=== PATIENT | male | born 1950 | race Caucasian/White ===

== ENCOUNTER → 2016-11-29 | Outpatient (CLI) | payer MEDICARE, BC ==
[2016-11-29 11:36] LABS: ALT 32 U/L (21-72); AST 23 U/L (17-59); Cholesterol 141 mg/dL (<200); HDL Cholesterol 42 mg/dL (40-60); Triglycerides 89 mg/dL (<150)
== END | disposition home or self-care (01) ==
LOC: LABWHC1 10:34
PROVIDERS: ATTEND Internal Medicine Interventional Cardiology
DX: E78.2 Mixed hyperlipidemia (principal)
CPT/HCPCS: 36415; 80061; 84450; 84460

== ENCOUNTER → 2017-06-16 | Outpatient (CLI) | payer MEDICARE, BC ==
[2017-06-16 09:14] LABS: ALT 28 U/L (21-72); AST 24 U/L (17-59); Alkaline Phosphatase 57 U/L (38-126); Anion Gap 9 mmol/L; Blood Urea Nitrogen 23 mg/dL (9-20); Calcium 9.2 mg/dL (8.4-10.2); Carbon Dioxide 28 mmol/L (22-30); Chloride 105 mmol/L (98-107); Cholesterol 130 mg/dL (<200); Glucose 95 mg/dL (74-99); HDL Cholesterol 46 mg/dL (40-60); Non-African American GFR(MDRD) >60 (>60 ml/min/1.73 sqM); Potassium 4.1 mmol/L (3.5-5.1); Sodium 142 mmol/L (137-145); Total Bilirubin 1.2 mg/dL (0.2-1.3); Total Protein 6.9 g/dL (6.3-8.2)
== END | disposition home or self-care (01) ==
LOC: LABWHC1 08:37
PROVIDERS: ATTEND Internal Medicine Interventional Cardiology
DX: E78.2 Mixed hyperlipidemia (principal)
CPT/HCPCS: 36415; 80053; 80061

== ENCOUNTER → 2017-12-14 | Outpatient (CLI) | payer MEDICARE, BC ==
[2017-12-14 11:01] LABS: ALT 24 U/L (21-72); AST 23 U/L (17-59); Albumin 4.3 g/dL (3.5-5.0); Alkaline Phosphatase 55 U/L (38-126); Anion Gap 10 mmol/L; Blood Urea Nitrogen 19 mg/dL (9-20); Calcium 9.9 mg/dL (8.4-10.2); Carbon Dioxide 33 mmol/L (22-30); Chloride 100 mmol/L (98-107); Cholesterol 129 mg/dL (<200); Glucose 105 mg/dL (74-99); HDL Cholesterol 45 mg/dL (40-60); LDL Cholesterol,Calculated 69 mg/dL (0-99); Potassium 4.4 mmol/L (3.5-5.1); Sodium 143 mmol/L (137-145); Total Bilirubin 1.2 mg/dL (0.2-1.3); Total Protein 7.1 g/dL (6.3-8.2); Triglycerides 74 mg/dL (<150)
== END | disposition home or self-care (01) ==
LOC: LABWHC1 10:07
PROVIDERS: ATTEND Internal Medicine Interventional Cardiology
DX: E78.2 Mixed hyperlipidemia (principal)
CPT/HCPCS: 36415; 80053; 80061

== ENCOUNTER → 2018-07-16 | Outpatient (CLI) | payer MEDICARE, BC ==
[2018-07-16 10:47] LABS: ALT 20 U/L (21-72); AST 20 U/L (17-59); Cholesterol 117 mg/dL (<200); HDL Cholesterol 43 mg/dL (40-60); LDL Cholesterol,Calculated 62 mg/dL (0-99); Triglycerides 59 mg/dL (<150)
== END | disposition home or self-care (01) ==
LOC: LABWHC1 09:36
PROVIDERS: ATTEND Internal Medicine Interventional Cardiology
DX: E78.2 Mixed hyperlipidemia (principal)
CPT/HCPCS: 36415; 80061; 84450; 84460

== ENCOUNTER → 2018-12-05 | Outpatient (CLI) | payer MEDICARE, BC ==
--- NOTE | 2018-12-05 12:04 | XR ---
Left shoulder HISTORY: Left shoulder pain, limited range of motion 3 views of the left shoulder, no comparisons Bone mineralization and alignment maintained. Question some loss of joint space at the glenohumeral j oint. Left lung apex as visualized is normal. No fracture or dislocation. The aorta is dense. IMPRESSION: Possible joint space loss glenohumeral joint, shoulder MRI may be of benefit.
== END | disposition home or self-care (01) ==
LOC: RADXRYALE 10:23
PROVIDERS: ATTEND Internal Medicine
DX: M25.512 Pain in left shoulder (principal)

== ENCOUNTER → 2019-01-01 | Outpatient (CLI) | payer MEDICARE, BC ==
[2019-01-01 16:02] LABS: Albumin 4.2 g/dL (3.80-4.90); Calcium 9.3 mg/dL (8.7-10.3); Globulin 2.1 g/dL (1.6-3.3); LDL Cholesterol,Calculated 62.8 mg/dL (0.0-131.0); Total Bilirubin 0.9 mg/dL (0.2-1.2); Total Protein 6.3 g/dL (6.2-8.2); VLDL Calculation 10.2 mg/dL (5.00-40.00)
== END | disposition home or self-care (01) ==
LOC: LABWHC1 10:45
PROVIDERS: ATTEND Internal Medicine Interventional Cardiology
DX: E78.2 Mixed hyperlipidemia (principal)
CPT/HCPCS: 36415; 80053; 80061

== ENCOUNTER → 2019-05-16 | Outpatient (CLI) | payer MEDICARE, BC ==
--- NOTE | 2019-05-16 08:15 | US ---
EXAMINATION TYPE: US groin RT DATE OF EXAM: 05/16/2019 COMPARISON: NONE CLINICAL HISTORY: R31.0 Gross hematuria, K40.91 Inguinal hernia. Patient states having right hernia s urgery x 5 years ago. Patient states bumping right groin with a trailer. Right groin scanned. Break in muscle visualized with protruding bowel seen during valsalva maneuvers . Approximate width = 0.6 cm. Area of shadowing visualized in right groin, possible previous mesh from prior hernia surgery? IMPRESSION: There is suspected recurrent small inguinal hernia best visualized during Valsalva maneu fatuma as detailed above.
--- NOTE | 2019-05-16 08:18 | US ---
EXAMINATION TYPE: US kidneys/renal and bladder DATE OF EXAM: 05/16/2019 COMPARISON: NONE CLINICAL HISTORY: R31.0 Gross hematuria, K40.91 Inguinal hernia. Gross hematuria. Patient states bum ping right groin with a trailer. EXAM MEASUREMENTS: Right Kidney: 11.2 x 5.5 x 6.6 cm Left Kidney: 10.4 x 4.0 x 5.3 cm Right Kidney: two simple appearing thin-walled cysts visualized. 1- mid medial = 5.7 x 6.1 x 5.8 cm. 2- lower medial = 3.3 x 2.9 x 2.4 cm. Left Kidney: Probable thin-walled cyst, lower pole = 0.6 x 0.6 x 0.7 cm towards end of study. Bladder: Suboptimally distended otherwise, wnl Bilateral Jets seen There is no evidence for hydronephrosis at this point in time. No nephrolithiasis is seen on images saved. No masses are identified. The urinary bladder is not greatly distended without intraluminal mass. Bilateral ureteral jets are seen. IMPRESSION: No significant finding is seen to account for patient's symptoms of hematuria. Some large r simple-appearing thin-walled cysts noted in the right kidney. If symptoms persist further investiga tion with CT would be warranted.
== END | disposition home or self-care (01) ==
LOC: RADUSWWP 07:24
PROVIDERS: ATTEND Internal Medicine
DX: N28.1 Cyst of kidney, acquired (principal); K40.91 Unilateral inguinal hernia, without obstruction or gangrene, recurrent
CPT/HCPCS: 76770

== ENCOUNTER → 2019-05-29 | Outpatient (CLI) | payer MEDICARE, BC ==
--- NOTE | 2019-05-29 14:17 | CT ---
EXAMINATION TYPE: CT abdomen pelvis wo con DATE OF EXAM: 05/29/2019 COMPARISON: Correlation renal ultrasound 05/16/2019 HISTORY: 58-year-old male with gross Hematuria CT DLP: 382.6 mGycm. Automated exposure control for dose reduction was used. TECHNIQUE: Contiguous axial scanning of the abdomen and pelvis without IV contrast. Coronal and sagit bridget reconstructions performed. FINDINGS: Heart upper limits of normal in size without pericardial effusion. Coronary vessel calcifications are present and are a marker for coronary artery disease. Lung bases clear without pleural effusion. There is a moderate-sized hiatal hernia containing a third of the stomach in the lower chest. Promine nt soft tissue density in the region of the hernia suspected to represent gastric sharp in apposition . Noncontrast appearance of the liver, gallbladder, adrenal glands, left kidney, spleen, and pancreas s how no gross abnormality. Large 6.5 cm hypodense lesion lateral right kidney and a biloculated appearing low-density lesion low er pole right kidney measuring 4.3 cm. No nephrolithiasis or hydronephrosis is seen. No dilated small bowel, free fluid, or free air. Moderate stool burden. Mild diverticular change along the right side of the colon and mild within the sigmoid colon as well. No pericolonic inflammatory change. No mesenteric or retroperitoneal lymphadenopathy. Mild to moderate atherosclerotic calcifications abdominal aorta and iliac arteries with infrarenal fu siform ectasia 2.5 cm. Bladder urine distended. Prostate gland measures 4.0 cm wide. Pelvic limits. Prominent 9 mm right ext ernal iliac chain lymph node. No abnormal fluid collection in the pelvis. Bones: Mild degenerative changes at the hips. Hypertrophic facet arthropathy lower lumbar spine. Grad e 1 retrolisthesis at L2-L3. IMPRESSION: 1. No nephrolithiasis or hydronephrosis. 2. A couple cystic lesions within the right kidney measure up to 6.5 cm. Benign cysts are suspected. The smaller is at the lower pole and appears bilocular measuring 4.3 cm. 3. Moderate stool burden. Mild diverticular change. No acute diverticulitis. 4. Moderate-sized hiatal hernia. Prominent soft tissue density at the site of hernia likely represen ts redundant and clumped up gastric wall. Direct visualization as clinically indicated.
== END | disposition home or self-care (01) ==
LOC: RADCTMAIN 10:55
PROVIDERS: ATTEND Internal Medicine
DX: N28.1 Cyst of kidney, acquired (principal); K44.9 Diaphragmatic hernia without obstruction or gangrene
CPT/HCPCS: 74176

== ENCOUNTER → 2019-08-01 | Outpatient (CLI) | payer MEDICARE, BC ==
[2019-08-01 23:35] LABS: Chol/HDL Ratio 3.32; LDL Cholesterol,Calculated 74.2 mg/dL (0.0-131.0); VLDL Calculation 13.8 mg/dL (5.00-40.00)
== END | disposition home or self-care (01) ==
LOC: LABWHC1 09:53
PROVIDERS: ATTEND Internal Medicine Interventional Cardiology
DX: E78.2 Mixed hyperlipidemia (principal)
CPT/HCPCS: 36415; 80061; 84450; 84460

== ENCOUNTER → 2020-02-05 | Outpatient (CLI) | payer MEDICARE, BC ==
[2020-02-05 15:24] LABS: African American GFR (CKD) 99.9 (60.0-200.0); Albumin 4.3 g/dL (3.80-4.90); Albumin/Globulin Ratio 2.05 (1.60-3.17); Anion Gap 8.6 mmol/L (4.00-12.00); Calcium 9.3 mg/dL (8.7-10.3); Carbon Dioxide 29.4 mmol/L (21.6-31.8); Chol/HDL Ratio 3.15; Globulin 2.1 g/dL (1.6-3.3); LDL Cholesterol,Calculated 71.8 mg/dL (0.0-131.0); Non-African American GFR(CKD) 86.2 (60.0-200.0); Potassium 3.9 mmol/L (3.5-5.5); Total Bilirubin 1.1 mg/dL (0.3-1.2); Total Protein 6.4 g/dL (6.2-8.2); VLDL Calculation 14.2 mg/dL (5.00-40.00)
== END | disposition home or self-care (01) ==
LOC: LABWHC1 10:38
PROVIDERS: ATTEND Internal Medicine Interventional Cardiology
DX: E78.2 Mixed hyperlipidemia (principal)
CPT/HCPCS: 36415; 80053; 80061

== ENCOUNTER → 2021-02-22 | Outpatient (CLI) | payer MEDICARE ==
[2021-02-22 14:54] LABS: African American GFR (CKD) 87.4 (60.0-200.0); Albumin 4.5 g/dL (3.80-4.90); Albumin/Globulin Ratio 2.37 (1.60-3.17); Anion Gap 5.6 mmol/L (4.00-12.00); Calcium 9.6 mg/dL (8.7-10.3); Carbon Dioxide 31.4 mmol/L (21.6-31.8); Chol/HDL Ratio 3.5; Globulin 1.9 g/dL (1.6-3.3); LDL Cholesterol,Calculated 84.2 mg/dL (0.0-131.0); Non-African American GFR(CKD) 75.4 (60.0-200.0); Potassium 4.2 mmol/L (3.5-5.5); Total Bilirubin 1.4 mg/dL (0.2-1.2); Total Protein 6.4 g/dL (6.2-8.2); VLDL Calculation 15.8 mg/dL (5.00-40.00)
== END | disposition home or self-care (01) ==
LOC: LABWHC1 09:31
PROVIDERS: ATTEND Internal Medicine Interventional Cardiology
DX: E78.2 Mixed hyperlipidemia (principal)
CPT/HCPCS: 36415; 80053; 80061

== ENCOUNTER → 2021-09-14 | Outpatient (CLI) | payer MEDICARE ==
[2021-09-14 18:15] LABS: LDL Cholesterol,Calculated 66.4 mg/dL (0.0-131.0); VLDL Calculation 13.94 mg/dL (5.00-40.00)
[2021-09-14 18:58] LABS: ALT 13 U/L (10-49); AST 28 U/L (14-35)
== END | disposition home or self-care (01) ==
LOC: LABWHC1 10:04
PROVIDERS: ATTEND Internal Medicine Interventional Cardiology
DX: E78.2 Mixed hyperlipidemia (principal)
CPT/HCPCS: 36415; 80061; 84450; 84460

== ENCOUNTER → 2021-12-01 | Outpatient (CLI) | payer MEDICARE ==
[2021-12-01 20:27] LABS: African American GFR (CKD) 88.3 (60.0-200.0); Blood Urea Nitrogen 15.4 mg/dL (9.0-27.0); Non-African American GFR(CKD) 76.2 (60.0-200.0)
[2021-12-01 20:48] LABS: C Reactive Protein <0.30 mg/dL (0.00-0.80)
== END | disposition home or self-care (01) ==
LOC: LABWHC1 12:17
PROVIDERS: ATTEND Ophthalmology
DX: E03.9 Hypothyroidism, unspecified (principal)
CPT/HCPCS: 36415; 82565; 84439; 84443; 84520; 86140

== ENCOUNTER → 2021-12-16 | Outpatient (CLI) | payer MEDICARE ==
--- NOTE | 2021-12-18 02:46 | MR ---
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 The orbital margins are intact. There is no evidence of retro-orbital mass. The extraocular muscles a ppear symmetric and normal in size. The globes are symmetric. The optic nerves have normal size and c ontour. The contrast images show no pathologic enhancement. There is minimal mucosal thickening in the anterior ethmoid air cells. IMPRESSION: Normal MR scan of the orbits. Minimal anterior ethmoid sinusitis.
== END | disposition home or self-care (01) ==
LOC: RADMRIMAIN 11:16
PROVIDERS: ATTEND Ophthalmology
DX: H05.20 Unspecified exophthalmos (principal)
CPT/HCPCS: 70543; A9585

== ENCOUNTER → 2022-03-31 | Outpatient (CLI) | payer MEDICARE ==
[2022-03-31 14:34] LABS: ALT 6 U/L (10-49); AST 22 U/L (14-35); African American GFR (CKD) 104.5 (60.0-200.0); Albumin 4.4 g/dL (3.8-4.9); Albumin/Globulin Ratio 1.78 (1.60-3.17); Alkaline Phosphatase 77 U/L (41-126); BUN/Creat Ratio 26.03 Ratio (12.00-20.00); Blood Urea Nitrogen 20.3 mg/dL (9.0-27.0); Calcium 9.4 mg/dL (8.7-10.3); Carbon Dioxide 24.2 mmol/L (20.0-27.5); Chloride 104 mmol/L (96-109); Chol/HDL Ratio 3.03 Ratio; Globulin 2.5 g/dL (1.6-3.3); Glucose 107 mg/dL (70-110); LDL Cholesterol,Calculated 69.9 mg/dL (0.0-131.0); Non-African American GFR(CKD) 90.2 (60.0-200.0); Potassium 3.7 mmol/L (3.5-5.5); Sodium 138 mmol/L (135-145); Total Protein 6.8 g/dL (6.2-8.2)
== END | disposition home or self-care (01) ==
LOC: LABWHC1 09:11
PROVIDERS: ATTEND Internal Medicine Interventional Cardiology
DX: E78.2 Mixed hyperlipidemia (principal)
CPT/HCPCS: 36415; 80053; 80061

== ENCOUNTER 2025-05-15 08:53 | Day surgery (SDC) | payer MEDICARE ==
[2025-05-15] MEDS: IV FLUID CONTINUATION 1,000 ML IV ONE ×2 (09:10→10:27)
[2025-05-15 09:25] VITALS: RESP 16; TEMP 98.2
[2025-05-15] MEDS: LACTATED RINGERS 1,000 ML IV SCH (09:33)
[2025-05-15] MEDS ORDERED: PROPOFOL 10 MG/ML 20 ML VIAL IV ONE (10:30)
[2025-05-15] MEDS ORDERED: LIDOCAINE 2% (PF) 20 MG/ML 5 ML VIAL ONE (10:30)
[2025-05-15 11:06] VITALS: PULSE 57
[2025-05-15] MEDS: LACTATED RINGERS 1,000 ML IV ONE (11:06)
[2025-05-15 11:15] VITALS: BP 101/62
--- NOTE | 2025-05-15 11:16 | P.PCN ---
Date of Procedure: 05/15/25 Preoperative Diagnosis: GERD Screening Postoperative Diagnosis: Hiatal hernia Diverticulosis Ascending colon polyp Procedure(s) Performed: EGD with biopsy Colonoscopy with forcep polypectomy Anesthesia: [facility] [place] Pathology: other (Biopsy of antrum, GE junction, duodenum and polypectomy of ascending colon) Condition: stable Disposition: same day Indications for Procedure: 74-year-old male presents today for upper and lower endoscopy. He does have chronic history of GERD and hiatal hernia. He states he has some pain in the epigastrium and further evaluation will be performed with EGD. He is due for screening colonoscopy. Denies any blood in the stool. Does have history of polyp in the past. Risks, benefits and alternatives provided to the patient. All questions answered. Operative Findings: Hiatal hernia, moderate size Ascending colon polyp Diverticulosis of the sigmoid colon Description of Procedure: The patient was brought into the endoscopy suite and placed in left lateral decubitus position. Adequate sedation was achieved using conscious sedation. A bite-block was placed and an endoscope was placed in the oropharynx and advanced under endoscopic visualization. The endoscope was advanced through the esophagus into the stomach, through the gastric antrum and in through the pylorus. The third portion of duodenum was visualized. The endoscope was then slowly withdrawn. The first portion of duodenum was noted to have mild inflammatory changes. Biopsies were taken. The antrum was noted to have mild inflammatory changes. Biopsies were taken. The gastric body distended normally and the gastric folds appeared normal and flattened with insufflation. A retroflexed view of the fundus and GE junction revealed moderate size hiatal hernia. GE junction appeared normal without any significant inflammatory changes and biopsies were taken. The esophagus appeared endoscopically normal. Excess air was removed and the scope was withdrawn. Digital rectal exam was performed and mild internal hemorrhoids were palpated. An endoscope was then placed in the rectum and advanced to the cecum as identified by landmarks including the appendiceal orifice and the ileocecal valve. The prep was fair. The colonoscope was then slowly withdrawn, examining for any mucosal abnormalities. The cecum, ascending, transverse, descending and sigmoid colon were visualized adequately. There were no large neoplastic lesions noted throughout the colon. Small polyp was noted in the ascending colon. Forcep polypectomy was performed. Hemostasis was maintained. Diverticulosis was noted in the sigmoid colon. Hemostasis was maintained. Retroflexion was performed in the rectum and internal hemorrhoids. Excess air was removed, the colonoscope withdrawn and the procedure terminated. The patient was then transferred to the recovery unit in stable condition. Repeat colonoscopy should be performed in 5 years.
== END 2025-05-15 12:04 | disposition home or self-care (01) ==
LOC: ORWHC2ENDO 08:53
PROVIDERS: ATTEND Surgery
DX: Z12.11 Encounter for screening for malignant neoplasm of colon (principal); K63.5 Polyp of colon; K21.00 Gastro-esophageal reflux disease with esophagitis, without bleeding; K44.9 Diaphragmatic hernia without obstruction or gangrene; K57.30 Diverticulosis of large intestine without perforation or abscess without bleeding; K64.8 Other hemorrhoids; I10 Essential (primary) hypertension; E78.5 Hyperlipidemia, unspecified; Z79.82 Long term (current) use of aspirin; Z79.899 Other long term (current) drug therapy
CPT/HCPCS: 88305; 45380; 43239; J2704; J2003